=== PATIENT | male | born 1985 | race Caucasian/White ===

== ENCOUNTER 2020-04-17 23:33 | Observation (INO) | payer SELFPAY ==
[~2020-04-17] VITALS: Ht 167.6 cm; Wt 87.3 kg
[2020-04-18] VITALS (11 sets, daily range): BP systolic 119–150; BP diastolic 75–87; PULSE 98–120; TEMP 98.5–98.8
[2020-04-18 00:49] LABS: BASO # 0.1 (0.0-0.2); BASO % 0.5 % (0.0-2.0); EOS # 0.1 (0.0-0.7); EOS % 0.7 % (0-4.0); GRAN # 6.6 (1.4-6.5); HEMATOCRIT 40.4 % (42.0-52.0); HEMOGLOBIN 13.7 g/dl (13.5-18.0); LYMPH # 2.2 (1.2-3.4); MEAN CELL VOLUME 81 fl (80.0-100.0); MEAN CORPUSCULAR HEMOGLOBIN 28 pg (27.0-31.0); MEAN CORPUSCULAR HGB CONC 34 g/dl (33.0-37.0); MEAN PLATELET VOLUME 8.9 fl (7.4-10.4); MONO # 1.4 (0.1-0.6); MONO % 13.7 % (1.7-9.3); PLATELET COUNT 593 K/mm3 (130-400); RED BLOOD COUNT 4.97 M/mm3 (4.20-5.60); REDCELL DISTRIBUTION WIDTH-CV 12.7 % (11.5-14.5)
[2020-04-18 00:56] LABS: ALBUMIN 4.2 gm/dL (3.5-5.0); BILIRUBIN,TOTAL 0.4 mg/dL (0.0-1.0); CALCIUM 9.9 mg/dL (8.4-10.2); CREATININE, serum 0.88 (0.66-1.25); POTASSIUM 3.3 mmol/L (3.4-5.0); TOTAL PROTEIN 8.3 gm/dL (6.4-8.2)
--- NOTE | 2020-04-18 07:10 | NUR ---
Pt arrived to floor from PACU, resting in bed with dressing to jawline. Denies needs or pain, will continue to monitor.
--- NOTE | 2020-04-18 09:23 | NUR ---
Initial visit; Patient thanked [employer] for offering God's blessings and keeping him in [employer] prayers.
--- NOTE | 2020-04-18 11:18 | NUR ---
Pt doing well, called Kady and he will visit pt this afternoon to determine discharge plan.
--- NOTE | 2020-04-18 18:32 | NUR ---
Pt has done well over shift. REsting in chair at side of bed for most of day, denies needs, dressing changed by [place] but otherwise no need for further dressing changes. Will give bedside shift report to nightshift nurse who will resume care.
--- NOTE | 2020-04-18 20:30 | NUR ---
Patient sitting up in recliner. Alert and oriented x 3. Patient independent in room. States pain to left neck 11/03, medications given per orders. Dressing changed at shift change with day shift RN. Patient having serosanguinious drainage from shaka drain. Denies further needs at this time.
[2020-04-19 00:26] VITALS: BP 150/87; PULSE 96; TEMP 98.9
--- NOTE | 2020-04-19 01:15 | NUR ---
Patient called out to nurses station states pain to left neck/jaw 11/03. Pain increased with coughing. Denies further needs at this time.
[2020-04-19 03:38] VITALS: BP 143/90; PULSE 83; TEMP 97.9
--- NOTE | 2020-04-19 06:55 | NUR ---
Lying in bed with eyes open. No pain at this time until left jaw area is touched. Dressing removed by JOSE Brown, as it was coming undone. Herber to dependent drainage with serous fluid. 4x4s applied on top of the pen isiah and then wrapped with kerlix and then the jaw bra applied. Swelling noted to left jaw area. Patient says that he is hopeful to go home today. Denies needs at this time.
--- NOTE | 2020-04-19 07:26 | NUR ---
Patient doing well overnight. Minimal needs, independent in room. Patient denies pain at this time. Dressing change this AM d/t minimal serosanguinous drainage, gauze and kerlix dressing in place. Denies further needs at this time. Will report off to day shift.
[2020-04-19 08:19] VITALS: BP 151/84; PULSE 87; TEMP 97.5
--- NOTE | 2020-04-19 10:00 | NUR ---
Review all discharge instructions with the patient. Denies questions. Signs all discharge paperwork. Discharge packet provided to the patient. Patient will let his girlfriend know that he is ready for fruit picker machine operator and he will use call light when she is at ER entrance to pick him up. Denies needs at this time.
--- NOTE | 2020-04-19 10:27 | NUR ---
Patient calls and says that his ride is at the ER entrance to pick him up. Patient assisted out to POV by this nurse with all belongings.
== END 2020-04-19 10:27 | disposition home or self-care (01) ==
LOC: COL.ER 23:33 → SURG 04-18 04:41
PROVIDERS: Emergency Medicine; ADMIT Otolaryngology
DX: K04.7 Periapical abscess without sinus (principal); F17.220 Nicotine dependence, chewing tobacco, uncomplicated; Z88.0 Allergy status to penicillin
CPT/HCPCS: G0378; J0330; J0696; J1100; J1885; J2405; J2704; J3010; J3370; J7050